=== PATIENT | male | born 1995 | race Caucasian/White ===

== ENCOUNTER 2017-12-08 17:45 | Emergency (ER) | payer MEDICAID ==
[2017-12-08 19:07] VITALS: BP 120/71
[2017-12-08] MEDS ORDERED: HYDROcodone/ACETAMIN 5-325 MG* 1 TAB PO ONE (19:40)
--- NOTE | 2017-12-08 19:40 | UC ---
[facility] HPI - HPI Summary HPI Summary: 22 yo male s/p dental extraction x 2 this AM Rxed 2 hydrocodone took last one at 3 pm - History of Current Complaint Chief Complaint: UCDentalProblem Stated Complaint: DENTAL Time Seen by Provider: 12/08/17 19:31 Hx Obtained From: Patient Onset/Duration: Sudden Onset, Lasting Hours Severity: Severe Pain Intensity: 7 Pain Scale Used: 0-10 Numeric Aggravating Factor(s): Heat, Cold, Chewing Alleviating Factor(s): Other (see comments) - hydrocodone - Allergies/Home Medications Allergies/Adverse Reactions: Allergies Allergy/AdvReac Type Severity Reaction Status Date / Time No Known Allergies Allergy Verified 12/08/17 19:06 Home Medications: Home Medications Hydrocodone/Acetaminophen [Hydrocodone Bitartrate/AC] 1 tab PO 12/08/17 [History ] Ibuprofen 800 mg PO 12/08/17 [History] PMH/Surg Hx/FS Hx/Imm Hx Previously Healthy: Yes - Surgical History Surgical History: Yes Surgery Procedure, Year, and Place: L side, arms, leg - Family History Known Family History: Positive: Hypertension - Social History Alcohol Use: None Substance Use Type: None Smoking Status (MU): Never Smoked Tobacco Review of Systems Constitutional: Negative Skin: Negative Eyes: Negative ENT: Dental Pain Respiratory: Negative Cardiovascular: Negative Gastrointestinal: Negative Genitourinary: Negative Motor: Negative Neurovascular: Negative Musculoskeletal: Negative Neurological: Negative Psychological: Negative Is Patient Immunocompromised?: No All Other Systems Reviewed And Are Negative: Yes Physical Exam Triage Information Reviewed: Yes Appearance: Well-Appearing, No Pain Distress, Well-Nourished Vital Signs: Initial Vital Signs Temp 98.3 F 12/08/17 19:03 Pulse 63 12/08/17 19:03 Resp 18 12/08/17 19:03 BP 120/71 12/08/17 19:03 Pulse Ox 100 12/08/17 19:03 Vital Signs Reviewed: Yes Eyes: Positive: Conjunctiva Clear ENT: Positive: Pharynx normal, Uvula midline. Negative: TMs normal, TM bulging , Trismus, Muffled voice Neck: Positive: Supple, Nontender Respiratory: Positive: Lungs clear, Normal breath sounds, No respiratory distress, No accessory muscle use Cardiovascular: Positive: RRR, No Murmur Musculoskeletal: Positive: No Edema Neurological: Positive: Alert Psychological Exam: Normal Dental Complaint Course/Dx - Differential Dx/Diagnosis Provider Diagnoses: post dental extraction pain Discharge - Discharge Plan Condition: Stable Disposition: HOME Prescriptions: HYDROcodone/ACETAMIN 5-325 MG* [[place] 5-325 TAB*] 1 tab PO Q4H PRN #6 tab MDD 6 PRN Reason: Pain Patient Education Materials: Toothache (ED) Referrals: No Primary Care Phys,NOPCP [Primary Care Provider] - Additional Instructions: call your dentist in AM continue ibuprofen Images Dental: 1 - absent. fresh clots
== END 2017-12-08 19:54 | disposition home or self-care (01) ==
LOC: UCCORT 17:45
DX: G89.18 Other acute postprocedural pain (principal); K08.89 Other specified disorders of teeth and supporting structures
CPT/HCPCS: 99212; G0463

== ENCOUNTER 2018-06-01 09:39 | Emergency (ER) | payer MEDICAID, OTHER ==
[2018-06-01 10:02] VITALS: BP 141/87
--- NOTE | 2018-06-01 10:20 | RAD ---
Indication: Right thumb injury. 3 views of the right thumb demonstrates no fracture. No other bone or joint abnormality is identified. IMPRESSION: No fracture of the right thumb is noted.
--- NOTE | 2018-06-01 10:30 | UC ---
Hand/Wrist HPI - HPI Summary HPI Summary: Pt presents with c/o right thumb pain, swelling, and hematoma under right nail. Pt reports that he got right thumb caught in car door ~ two weeks ago. - History Of Current Complaint Chief Complaint: UCUpperExtremity Stated Complaint: RIGHT THUMB INJURY Time Seen by Provider: 06/01/18 10:03 Hx Obtained From: Patient ?: No Onset/Duration: Sudden Onset, Lasting Weeks - 2 Severity Initially: Moderate Severity Currently: Moderate Pain Intensity: 7 Character Of Pain: Dull, Aching, Throbbing Aggravating Factor(s): Movement, Lifting Alleviating Factor(s): Nothing Associated Signs And Symptoms: Positive: Swelling, Bruising Related History: Dominant Hand Right - Risk Factors Compartment Syndrome Risk Factors: Pain - Allergies/Home Medications Allergies/Adverse Reactions: Allergies Allergy/AdvReac Type Severity Reaction Status Date / Time No Known Allergies Allergy Verified 06/01/18 09:58 Home Medications: Home Medications Acetaminophen [Acetaminophen Extra Strength] 1,000 mg PO Q6H PRN 06/01/18 [ History Confirmed 06/01/18] PMH/Surg Hx/FS Hx/Imm Hx Previously Healthy: Yes - Surgical History Surgical History: Yes Surgery Procedure, Year, and Place: L side, arms, leg- 1998 - Family History Known Family History: Positive: Hypertension - Social History Occupation: Employed Full-time Lives: With Family Alcohol Use: None Substance Use Type: None Smoking Status (MU): Never Smoked Tobacco Have You Smoked in the Last Year: No Review of Systems Constitutional: Negative Skin: Bruising Eyes: Negative ENT: Negative Respiratory: Negative Cardiovascular: Negative Gastrointestinal: Negative Genitourinary: Negative Motor: Decreased ROM - right thumb secondary to pain Neurovascular: Negative Musculoskeletal: Arthralgia, Decreased ROM, Edema, Myalgia Neurological: Negative Psychological: Negative Is Patient Immunocompromised?: No All Other Systems Reviewed And Are Negative: Yes Physical Exam Triage Information Reviewed: Yes Appearance: Pain Distress - with examination Vital Signs: Initial Vital Signs Temp 98.7 F 06/01/18 09:59 Pulse 83 06/01/18 09:59 Resp 17 06/01/18 09:59 BP 141/87 06/01/18 09:59 Pulse Ox 100 06/01/18 09:59 Vital Signs Reviewed: Yes Eye Exam: Normal ENT Exam: Normal Dental Exam: Normal Neck exam: Normal Respiratory: Positive: No respiratory distress Musculoskeletal: Positive: ROM Limited @, Edema @ - right distal thumb, subungual hematoma Neurological Exam: Normal Psychological Exam: Normal Skin Exam: Other - subungual hematoma right thumb Procedures - Incision and Drainage Right Finger Dorsal Site: right thumb, Instrument(s): Other - cautery tool Diagnostics - Radiology No standard instances Radiology Interpretation Completed By: Radiologist - IMPRESSION: No fracture of the right thumb is noted. Hand/Wrist Course/Dx - Course Course Of Treatment: Right thumb subungual hematoma - Differential Dx/Diagnosis Differential Diagnosis/HQI/PQRI: Fracture, Subungual Hematoma Provider Diagnoses: right subungual hematoma Discharge - Sign-Out/Discharge Documenting (check all that apply): Patient Departure - Discharge Plan Condition: Stable Disposition: HOME Prescriptions: Cephalexin CAP* [Keflex 500 CAP*] 500 mg PO Q12H #6 cap Patient Education Materials: Subungual Hematoma (ED) Referrals: [facility] [Outside] - If Needed No Primary Care Phys,NOPCP [Primary Care Provider] - - Billing Disposition and Condition Condition: STABLE Disposition: Home Attestation Statement User Type: Provider - I was available for consult. This patient was seen by the POONAM. The patient was not presented to, seen by, or examined by me. -Quang
== END 2018-06-01 10:42 | disposition home or self-care (01) ==
LOC: UCCORT 09:39
DX: S60.111A Contusion of right thumb with damage to nail, initial encounter (principal); V48.3XXA Unspecified car occupant injured in noncollision transport accident in nontraffic accident, initial encounter; Y93.9 Activity, unspecified; Y92.9 Unspecified place or not applicable
CPT/HCPCS: 11740; 99212; G0463